=== PATIENT | male | born 1945 | race Caucasian/White ===

== ENCOUNTER 2019-01-15 09:07 | Emergency (ER) | payer MEDICARE, BC ==
[2019-01-15] MEDS ORDERED: Sodium Chloride 0.9% 10 ML Syringe FLUSH PRN (09:24)
[2019-01-15] MEDS ORDERED: Diltiazem 50 MG/10 ML SDV IVPUSH ONE (09:37)
[2019-01-15] MEDS ORDERED: Diltiazem 125 MG in Sodium Chloride 0.9% 100 ML IV SCH (09:45)
[2019-01-15] MEDS ORDERED: Sodium Chloride 0.9% 1,000 ML IV ONE (09:47)
--- NOTE | 2019-01-15 11:19 | CR ---
Chest: Portable view of the chest was obtained. Comparison: No prior chest x-ray. Heart size is normal. Slight tortuosity of the thoracic aorta is seen. Lungs are clear with no acute parenchymal change. Bony structures are grossly intact. Impression: 1. Nothing acute is identified on portable chest x-ray. Diagnostic code #2
--- NOTE | 2019-01-15 11:24 | EDM.PDOC ---
ED HPI GENERAL MEDICAL PROBLEM - General Chief Complaint: Cardiovascular Problem Stated Complaint: BLACK OUTS Time Seen by Provider: 01/15/19 09:24 Source of Information: Reports: Patient History Limitations: Reports: No Limitations - History of Present Illness INITIAL COMMENTS - FREE TEXT/NARRATIVE: 73-year-old male presents for evaluation and treatment of near syncope. Patient reports morning he was plain again a pickle ball and felt like she is going to pass out. States he did not lose consciousness and at this point feels improved. He states that he did not pass out. Patient denies any headaches, chest pain, shortness of breath, chest palpitations, nausea or vomiting. He states he's had periodic abdominal discomfort for several months. Reports that he has an inguinal hernia. patient reports he's been sick with cold symptoms recently. No fevers. Minor cough and some nasal congestion. 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 He is on eliquis is 2.5mg twice a day. This was decreased from 5 mg twice a day only last week. Patient denies any cardiac history. No previous MIs or arrhythmias that he is aware of. 5 mg - Related Data Allergies Allergy/AdvReac Type Severity Reaction Status Date / Time lisinopril Allergy Cannot Verified 01/15/19 09:36 Remember pramipexole [From Mirapex] Allergy Cannot Verified 01/15/19 09:36 Remember Home Meds: Home Meds Apixaban [Eliquis] 2.5 mg PO BID 01/15/19 [History] Cealis. 5 mg PO DAILY 01/15/19 [History] Diltiazem HCl [Cardizem LA] 180 mg PO DAILY #7 tab.sr.24h 01/15/19 [Rx] Losartan [Cozaar] 100 mg PO DAILY 01/15/19 [History] amLODIPine [Norvasc] 2.5 mg PO DAILY 01/15/19 [History] atorvaSTATin [Lipitor] 20 mg PO BEDTIME 01/15/19 [History] Past Medical History Cardiovascular History: Reports: High Cholesterol, Hypertension Respiratory History: Reports: PE - Past Surgical History HEENT Surgical History: Reports: Tonsillectomy Musculoskeletal Surgical History: Reports: Arthroscopic Knee Social & Family History - Tobacco Use Smoking Status *Q: Never Smoker - Caffeine Use Caffeine Use: Reports: Coffee - Recreational Drug Use Recreational Drug Use: No ED ROS GENERAL - Review of Systems Review Of Systems: See Below Constitutional: Denies: Fever, Chills HEENT: Reports: Other (reports cold symptoms of minor cough and congestion for several days) Respiratory: Denies: Shortness of Breath Cardiovascular: Reports: Lightheadedness. Denies: Chest Pain, Edema, Palpitations, Syncope GI/Abdominal: Reports: Abdominal Pain (episodic for several months). Denies: Nausea, Vomiting Neurological: Denies: Syncope ED EXAM, GENERAL - Physical Exam Exam: See Below Exam Limited By: No Limitations General Appearance: Alert, WD/WN, No Apparent Distress Throat/Mouth: Normal Inspection, Normal Lips, Normal Voice, No Airway Compromise Neck: Normal Inspection Respiratory/Chest: No Respiratory Distress, Lungs Clear, Normal Breath Sounds Cardiovascular: No Murmur, Irregularly Irregular Peripheral Pulses: 2+: Radial (L), Radial (R), Posterior Tibial (L), Posterior Tibial (R), Dorsalis Pedis (L), Dorsalis Pedis (R) GI/Abdominal: Soft, Non-Tender Extremities: Normal Inspection, No Pedal Edema. No: Mahsa's Sign Neurological: Alert, Oriented, Normal Cognition Psychiatric: Normal Affect, Normal Mood Skin Exam: Warm, Dry, Normal Color EKG INTERPRETATION EKG Date: 01/15/19 Time: 21:24 Rhythm: A-Fib Rate (Beats/Min): 135 [place]: Normal P-Wave: Present QRS: Normal ST-T: Normal QT: Normal EKG Interpretation Comments: a.fib with a rate of 135. Q waves II, III and AVF - old inferior wall [place]. Reviewed by myself and dr. Trujillo. Course - Vital Signs Last Recorded V/S: Last Vital Signs Temp 97.3 F 01/15/19 09:20 Pulse 91 01/15/19 12:02 Resp 16 01/15/19 12:02 BP 120/85 01/15/19 12:02 Pulse Ox 99 01/15/19 12:02 - Orders/Labs/Meds Orders: Active Orders 24 hr Category Date Time Status Cardiac Monitoring [RC] . DIRECTED Care 01/15/19 09:24 Active EKG Documentation Completion [RC] ASDIRECTED Care 01/15/19 09:25 Active Peripheral IV Care [RC] . DIRECTED Care 01/15/19 09:25 Active Diltiazem 125 mg Med 01/15/19 09:45 Active Sodium Chloride 0.9% [Normal Saline] 100 ml IV TITRATE Sodium Chloride 0.9% [Saline Flush] Med 01/15/19 09:24 Active 10 ml FLUSH ASDIRECTED PRN Peripheral IV Insertion Adult [OM.PC] Routine Oth 01/15/19 09:24 Ordered EKG 12 Lead [EK] Stat Ther 01/15/19 09:24 Ordered Medication Orders Diltiazem HCl 125 mg/ Sodium (Chloride) 125 mls @ 10 mls/hr IV TITRATE TRU; Protocol Last Titration: 01/15/19 10:30 Dose: 10 mg/hr, 10 mls/hr Titration: 01/15/19 10:28 Dose: 5 mg/hr, 5 mls/hr Admin: 01/15/19 10:26 Dose: 10 mg/hr, 10 mls/hr Sodium Chloride (Saline Flush) 10 ml FLUSH ASDIRECTED PRN PRN Reason: Keep Vein Open Last Admin: 01/15/19 09:45 Dose: 10 ml Labs: Laboratory Tests 01/15/19 01/15/19 01/15/19 Range/Units 09:27 09:27 09:27 WBC 6.89 (4.23-9.07) K/mm3 RBC 5.16 (4.63-6.08) M/mm3 Hgb 16.0 (13.7-17.5) gm/L Hct 45.6 (40.1-51.0) % MCV 88.4 (79.0-92.2) fl MCH 31.0 (25.7-32.2) pg MCHC 35.1 (32.2-35.5) g/dl RDW Std Deviation 42.2 (35.1-43.9) fL Plt Count 298 (163-337) K/mm3 MPV 8.7 L (9.4-12.3) fl Neutrophils % (Manual) 64 H (40-60) % Band Neutrophils % 0 (0-10) % Lymphocytes % (Manual) 22 (20-40) % Atypical Lymphs % 0 % Monocytes % (Manual) 14 H (2-10) % Eosinophils % (Manual) 0 L (0.8-7.0) % Basophils % (Manual) 0 L (0.2-1.2) Platelet Estimate Adequate RBC Morph Comment Normal PT (9.5-12.1) SECONDS INR APTT (24-31) SECONDS D-Dimer, Quantitative 0.28 (0.19-0.50) mg/L Sodium 138 (136-145) mEq/L Potassium 3.9 (3.5-5.1) mEq/L Chloride 104 (98-107) mEq/L Carbon Dioxide 23 (21-32) mEq/L Anion Gap 14.9 (5-15) BUN 15 (7-18) mg/dL Creatinine 1.1 (0.7-1.3) mg/dL Est Cr Clr Drug Dosing 62.68 mL/min Estimated GFR (MDRD) > 60 (>60) mL/min BUN/Creatinine Ratio 13.6 L (14-18) Glucose 103 (83-115) mg/dL Calcium 9.3 (8.5-10.1) mg/dL Magnesium 1.8 (1.8-2.4) mg/dl Total Bilirubin 1.7 H (0.2-1.0) mg/dL AST 18 (15-37) U/L ALT 29 (16-63) U/L Alkaline Phosphatase 96 (46-116) U/L Troponin I < 0.017 (0.00-0.056) ng/mL Total Protein 7.5 (6.4-8.2) g/dl Albumin 4.0 (3.4-5.0) g/dl Globulin 3.5 gm/dL Albumin/Globulin Ratio 1.1 (1-2) TSH 3rd Generation 2.410 (0.358-3.74) uIU/mL 01/15/19 01/15/19 Range/Units 09:27 12:15 WBC (4.23-9.07) K/mm3 RBC (4.63-6.08) M/mm3 Hgb (13.7-17.5) gm/L Hct (40.1-51.0) % MCV (79.0-92.2) fl MCH (25.7-32.2) pg MCHC (32.2-35.5) g/dl RDW Std Deviation (35.1-43.9) fL Plt Count (163-337) K/mm3 MPV (9.4-12.3) fl Neutrophils % (Manual) (40-60) % Band Neutrophils % (0-10) % Lymphocytes % (Manual) (20-40) % Atypical Lymphs % % Monocytes % (Manual) (2-10) % Eosinophils % (Manual) (0.8-7.0) % Basophils % (Manual) (0.2-1.2) Platelet Estimate RBC Morph Comment PT 11.0 (9.5-12.1) SECONDS INR 1.01 APTT 29 (24-31) SECONDS D-Dimer, Quantitative (0.19-0.50) mg/L Sodium (136-145) mEq/L Potassium (3.5-5.1) mEq/L Chloride (98-107) mEq/L Carbon Dioxide (21-32) mEq/L Anion Gap (5-15) BUN (7-18) mg/dL Creatinine (0.7-1.3) mg/dL Est Cr Clr Drug Dosing mL/min Estimated GFR (MDRD) (>60) mL/min BUN/Creatinine Ratio (14-18) Glucose (83-115) mg/dL Calcium (8.5-10.1) mg/dL Magnesium (1.8-2.4) mg/dl Total Bilirubin (0.2-1.0) mg/dL AST (15-37) U/L ALT (16-63) U/L Alkaline Phosphatase (46-116) U/L Troponin I 0.020 (0.00-0.056) ng/mL Total Protein (6.4-8.2) g/dl Albumin (3.4-5.0) g/dl Globulin gm/dL Albumin/Globulin Ratio (1-2) TSH 3rd Generation (0.358-3.74) uIU/mL Meds: Medications Generic Name Dose Route Start Last Admin Trade Name Freq PRN Reason Stop Dose Admin Diltiazem HCl 125 mg/ Sodium 125 mls @ 10 mls/hr 01/15/19 09:45 01/15/19 10: 30 Chloride IV 10 mg/hr TITRATE TRU 10 mls/hr Titration Protocol 10 MG/HR Sodium Chloride 10 ml 01/15/19 09:24 01/15/19 09:45 Saline Flush FLUSH 10 ml ASDIRECTED PRN Administration Keep Vein Open Discontinued Medications Generic Name Dose Route Start Last Admin Trade Name Freq PRN Reason Stop Dose Admin Diltiazem HCl 10 mg 01/15/19 09:37 01/15/19 09:44 Cardizem IVPUSH 01/15/19 09:38 10 mg ONETIME ONE Administration Diltiazem HCl 60 mg 01/15/19 12:55 Cardizem PO 01/15/19 12:56 ONETIME ONE Sodium Chloride 1,000 mls @ 999 mls/hr 01/15/19 09:47 01/15/19 10:03 Normal Saline IV 01/15/19 10:47 999 mls/hr ONETIME ONE Administration - Radiology Interpretation Free Text/Narrative:: Chest: Portable view of the chest was obtained. Comparison: No prior chest x-ray. Heart size is normal. Slight tortuosity of the thoracic aorta is seen. Lungs are clear with no acute parenchymal change. Bony structures are grossly intact. Impression: 1. Nothing acute is identified on portable chest x-ray. - Re-Assessments/Exams Free Text/Narrative Re-Assessment/Exam: 01/15/19 12:55 When the patient arrived he is on be in A. fib with a rate in the 130s to 140s. He is given 10 mg IV push of Cardizem. This improved his heart rate into the 110s but also dropped his blood pressures into the 90s systolic. Therefore a bolus of 1 L normal saline was given. This improved his blood pressures back into the 1 teens systolic. A 10 mg per hour Cardizem drip was then initiated and this brought his heart ratesdown into the 70s and 80s. A repeat troponin Was carried out at the 3 hour radha. Initial troponin was less than 0.017. Repeat Troponin was still within normal limits at 0.020. Case was discussed with Dr. Trujillo. He did feel that he was safe to go home as patient is on eliquis. We will have him increase his eliquis to 5 g by mouth twice a day and start him on Cardizem. Recommended giving 60 mg by mouth in the ER and starting him on 180mg daily. I discussed the patient's disposition with him and his . i reviewed The EKG , chest x-ray and labs with the patient and his . We discussed an observation admission. He has responded very well to the Cardizem and does not need to be admitted however the do live out of town if uncomfortable with the plan of increasing eliqus and starting the Cardizem it wouldn't be unreasonable for observation admission. Patient and his feel comfortable going home. Plan will be to start him on Cardizem 180 mg standard release daily. Increase the eliquis back to 5 mg by mouth twice a day and have him follow-up with his primary care provider either tomorrow or Saturday at the latest. He is instructed to return to the ER if his symptoms change or worsen. Him and his express understanding of this. Discharge instructions as documented. Departure - Departure Time of Disposition: 12:55 Disposition: Home, Self-Care 01 Reason for Transfer *Q: Other Condition: Fair Clinical Impression: Atrial fibrillation Prescriptions: Diltiazem HCl [Cardizem LA] 180 mg PO DAILY #7 tab.sr.24h Instructions: Atrial Fibrillation, [id number] Referrals: PCP,None [Primary Care Provider] - Forms: ED Department Discharge Additional Instructions: Increase your eliquis to 5mg PO bid. Start the cardizam 1 tab PO daily. Continue with your other medications as this time. Follow-up with your PCP tomorrow of Saturday for further management. Please return to the ER should your symptoms change or worsen. - My Orders Last 24 Hours: My Active Orders 01/15/19 09:24 Cardiac Monitoring [RC] . DIRECTED Sodium Chloride 0.9% [Saline Flush] 10 ml FLUSH ASDIRECTED PRN Peripheral IV Insertion Adult [OM.PC] Routine EKG 12 Lead [EK] Stat 01/15/19 09:25 EKG Documentation Completion [RC] ASDIRECTED Peripheral IV Care [RC] . DIRECTED 01/15/19 09:45 Diltiazem 125 mg Sodium Chloride 0.9% [Normal Saline] 100 ml IV TITRATE - Assessment/Plan Last 24 Hours: My Active Orders 01/15/19 09:24 Cardiac Monitoring [RC] . DIRECTED Sodium Chloride 0.9% [Saline Flush] 10 ml FLUSH ASDIRECTED PRN Peripheral IV Insertion Adult [OM.PC] Routine EKG 12 Lead [EK] Stat 01/15/19 09:25 EKG Documentation Completion [RC] ASDIRECTED Peripheral IV Care [RC] . DIRECTED 01/15/19 09:45 Diltiazem 125 mg Sodium Chloride 0.9% [Normal Saline] 100 ml IV TITRATE
[2019-01-15] MEDS ORDERED: Diltiazem IR 60 MG Tab PO ONE (12:55)
== END 2019-01-15 13:16 | disposition home or self-care (01) ==
LOC: JD.ED 09:07
DX: I48.91 Unspecified atrial fibrillation (principal); I10 Essential (primary) hypertension; E78.00 Pure hypercholesterolemia, unspecified; Z88.8 Allergy status to other drugs, medicaments and biological substances; Z79.899 Other long term (current) drug therapy
CPT/HCPCS: 36415; 71045; 80053; 83735; 84443; 84484; 85007; 85027; 85379; 85610; 85730; 93005; 96365; 96366; 96376; 99284; A9270; J3490; J7030; J7040; 93010

== ENCOUNTER 2024-12-01 08:58 | Emergency (ER) | payer MEDICARE, BC ==
[2024-12-01] MEDS: Lidocaine 1% 10 ML MDV INJECT ONE (11:10)
== END 2024-12-01 12:14 | disposition home or self-care (01) ==
LOC: JD.ED 08:58
DX: S01.412A Laceration without foreign body of left cheek and temporomandibular area, initial encounter (principal); I10 Essential (primary) hypertension; E78.00 Pure hypercholesterolemia, unspecified; Z88.8 Allergy status to other drugs, medicaments and biological substances; Z79.01 Long term (current) use of anticoagulants; Z79.899 Other long term (current) drug therapy; W01.198A Fall on same level from slipping, tripping and stumbling with subsequent striking against other object, initial encounter; Y93.89 Activity, other specified
CPT/HCPCS: 12011; 12013; 70450; 70450-26; 70486; 70486-26; 72125; 72125-26; 99283; J2003